=== PATIENT | male | born 1975 | race African-American/Black ===

== ENCOUNTER 2019-10-21 08:19 | Inpatient (IN) | payer MEDICARE, MEDICAID ==
[~2019-10-21] VITALS: Ht 261.6 cm; Wt 109.8 kg
[2019-10-21] MEDS ORDERED: MORPHINE SULFATE 4 MG/ML CPJ (NOT FOR IM USE) IV STA (09:13)
[2019-10-21] MEDS ORDERED: SODIUM CHLORIDE 0.9% 1,000 ML IV ONE (09:13)
[2019-10-21] MEDS ORDERED: ONDANSETRON HCL 4MG/2ML INJ IV STA (09:13)
[2019-10-21 11:15] LABS: CHLORIDE 97 mEq/L (98-107); EOSINOPHILS % 0.3 % (0.0-5.0); HEMATOCRIT. 52.5 % (42.0-52.0); HEMOGLOBIN. 17.7 g/dL (14.0-18.0); LYMPHOCYTES % 20.1 % (20.0-50.0); MEAN CORPUSCULAR HEMOGLOBIN 27.9 pg (28.0-32.0); MEAN CORPUSCULAR VOLUME 82.8 fL (80.0-94.0); MEAN PLATELET VOLUME 10.2 fl (7.4-10.4); MONOCYTES % 7.8 % (2.0-8.0); NEUTROPHILS % 70.8 % (40.0-76.0); PLATELET 209 x1000/uL (130-400); RED BLOOD CELL COUNT 6.34 mill/uL (4.7-6.1); RED CELL DISTRIBUTION WIDTH 14.6 % (11.6-14.6)
[2019-10-21 11:19] LABS: PARTIAL THROMBOPLASTIN TIME 26.6 sec (23.4-31.0); PROTHROMBIN TIME 10.8 sec (9.6-11.0)
[2019-10-21] MEDS ORDERED: NA PHOS,M-B/NA PHOS,DI-BA ENEMA 118ML PR PRN (12:00)
[2019-10-21] MEDS ORDERED: IPRATROPIUM/ALBUTEROL 0.5-3(2.5)MG/3ML NEB ORI PRN (12:00)
[2019-10-21] MEDS ORDERED: ZOLPIDEM TARTRATE 5MG TABLET PO PRN (12:00)
[2019-10-21] MEDS ORDERED: DEXTROSE 50% WATER 50ML SYRINGE IV PRN (12:00)
[2019-10-21] MEDS ORDERED: ENOXAPARIN 40MG/0.4ML SYR SUBCUT SCH (12:00)
[2019-10-21] MEDS ORDERED: HALOPERIDOL LACTATE 5MG/ML VIAL IM PRN (12:00)
[2019-10-21] MEDS ORDERED: LORAZEPAM 2MG/ML CPJ IV PRN (12:00)
[2019-10-21] MEDS ORDERED: NITROGLYCERIN 0.4MG TABLET SL SL PRN (12:00)
[2019-10-21] MEDS ORDERED: ACETAMINOPHEN 325MG TABLET PO PRN ×2 (12:00)
[2019-10-21] MEDS ORDERED: KETOROLAC 15MG/ML VIAL IV PRN (12:00)
[2019-10-21] MEDS ORDERED: ONDANSETRON HCL 4MG/2ML INJ IV PRN (12:00)
[2019-10-21] MEDS ORDERED: GUAIFENESIN 200MG/10ML SUGAR FREE UDC PO PRN (12:00)
[2019-10-21] MEDS: SODIUM CHLORIDE 0.9% 1,000 ML IV SCH ×2 (12:01→21:48)
[2019-10-21] MEDS: BLOOD SUGAR DIAGNOSTIC STRIP TEST SCH ×4 (12:31→20:34)
[2019-10-21] MEDS: INSULIN LISPRO 100 UNITS/ML SUBCUT SCH ×3 (12:37→20:34)
[2019-10-21] MEDS ORDERED: GLYBURIDE 5MG TABLET PO SCH (16:30)
[2019-10-21] MEDS ORDERED: LISI-604 PO (17:27)
[2019-10-21 17:30] VITALS: BP 139/75
[2019-10-21 17:32] VITALS: BP 139/75
[2019-10-21 20:00] VITALS: BP 132/85
[2019-10-21] MEDS: ENOXAPARIN 30MG/0.3ML SYR SUBCUT SCH (20:32)
[2019-10-21] MEDS: ASCORBIC ACID 500 MG TABLET PO SCH (20:33)
[2019-10-21] MEDS: METOPROLOL TARTRATE 25MG TABLET PO SCH (20:33)
[2019-10-21] MEDS: FAMOTIDINE 20MG TABLET PO SCH (20:33)
[2019-10-21] MEDS: ATORVASTATIN CALCIUM 20MG TABLET PO SCH (20:33)
[2019-10-21 21:29] LABS: CREATINE KINASE 176 IU/L (39-308)
[2019-10-22] VITALS (7 sets, daily range): BP systolic 108–134; BP diastolic 60–74
[2019-10-22] MEDS: INSULIN LISPRO 100 UNITS/ML SUBCUT SCH ×4 (06:44→22:23)
[2019-10-22] MEDS: BLOOD SUGAR DIAGNOSTIC STRIP TEST SCH ×4 (06:44→21:00)
[2019-10-22] MEDS: SODIUM CHLORIDE 0.9% 1,000 ML IV SCH ×2 (07:49→22:21)
[2019-10-22] MEDS: ZINC SULFATE 220 MG ( 50 ) CAPSULE PO SCH (09:37)
[2019-10-22] MEDS: METOPROLOL TARTRATE 25MG TABLET PO SCH ×2 (09:38→22:22)
[2019-10-22] MEDS: ASPIRIN 325MG EC TABLET PO SCH (09:38)
[2019-10-22] MEDS: FAMOTIDINE 20MG TABLET PO SCH ×2 (09:38→22:22)
[2019-10-22] MEDS: ASCORBIC ACID 500 MG TABLET PO SCH ×2 (09:38→22:23)
[2019-10-22] MEDS: ENOXAPARIN 30MG/0.3ML SYR SUBCUT SCH ×2 (09:39→22:24)
[2019-10-22] MEDS: INSULIN GLARGINE UD 100 UNITS/ML SYR SUBCUT SCH (10:00)
[2019-10-22] MEDS: ATORVASTATIN CALCIUM 20MG TABLET PO SCH (22:23)
[2019-10-23] VITALS: BP 112/54
[2019-10-23] MEDS: SODIUM CHLORIDE 0.9% 1,000 ML IV SCH ×2 (03:49→13:49)
[2019-10-23 04:00] VITALS: BP 134/71
[2019-10-23] MEDS: INSULIN LISPRO 100 UNITS/ML SUBCUT SCH ×4 (07:08→22:13)
[2019-10-23] MEDS: BLOOD SUGAR DIAGNOSTIC STRIP TEST SCH ×4 (07:08→21:59)
[2019-10-23 08:00] VITALS: BP 138/71
[2019-10-23 08:46] LABS: BASOPHILS % 0.9 % (0.0-2.0); EOSINOPHILS % 1.6 % (0.0-5.0); HEMATOCRIT. 43.2 % (42.0-52.0); HEMOGLOBIN. 14.3 g/dL (14.0-18.0); LYMPHOCYTES % 31.6 % (20.0-50.0); MEAN CORPUSCULAR HEMOGLOBIN 27.5 pg (28.0-32.0); MEAN CORPUSCULAR VOLUME 83.4 fL (80.0-94.0); MEAN PLATELET VOLUME 9.7 fl (7.4-10.4); MONOCYTES % 7.7 % (2.0-8.0); NEUTROPHILS % 58.2 % (40.0-76.0); PLATELET 153 x1000/uL (130-400); RED BLOOD CELL COUNT 5.18 mill/uL (4.7-6.1); RED CELL DISTRIBUTION WIDTH 14.3 % (11.6-14.6)
[2019-10-23 08:51] LABS: CHLORIDE 103 mEq/L (98-107)
[2019-10-23] MEDS: ENOXAPARIN 30MG/0.3ML SYR SUBCUT SCH ×2 (09:34→21:59)
[2019-10-23] MEDS: ASCORBIC ACID 500 MG TABLET PO SCH ×2 (09:34→21:58)
[2019-10-23] MEDS: ASPIRIN 325MG EC TABLET PO SCH (09:34)
[2019-10-23] MEDS: FAMOTIDINE 20MG TABLET PO SCH ×2 (09:34→21:58)
[2019-10-23] MEDS: ZINC SULFATE 220 MG ( 50 ) CAPSULE PO SCH (09:34)
[2019-10-23] MEDS: METOPROLOL TARTRATE 25MG TABLET PO SCH ×2 (09:36→21:59)
[2019-10-23] MEDS ORDERED: POTASSIUM CHLORIDE 20MEQ TABLET SR PO SCH (11:00)
[2019-10-23 12:00] VITALS: BP 119/67
[2019-10-23] MEDS: INSULIN GLARGINE UD 100 UNITS/ML SYR SUBCUT SCH (18:06)
[2019-10-23 20:19] VITALS: BP 112/59
[2019-10-23] MEDS: ATORVASTATIN CALCIUM 20MG TABLET PO SCH (21:58)
[2019-10-24] VITALS (7 sets, daily range): BP systolic 118–154; BP diastolic 63–79
[2019-10-24] MEDS: SODIUM CHLORIDE 0.9% 1,000 ML IV SCH ×2 (00:59→14:19)
[2019-10-24] MEDS: BLOOD SUGAR DIAGNOSTIC STRIP TEST SCH ×4 (06:23→20:33)
[2019-10-24] MEDS: INSULIN LISPRO 100 UNITS/ML SUBCUT SCH ×4 (08:23→20:42)
[2019-10-24] MEDS: METOPROLOL TARTRATE 25MG TABLET PO SCH (08:26)
[2019-10-24] MEDS: FAMOTIDINE 20MG TABLET PO SCH ×2 (08:29→20:33)
[2019-10-24] MEDS: ZINC SULFATE 220 MG ( 50 ) CAPSULE PO SCH (08:29)
[2019-10-24] MEDS: ENOXAPARIN 30MG/0.3ML SYR SUBCUT SCH ×2 (08:29→20:32)
[2019-10-24] MEDS: ASCORBIC ACID 500 MG TABLET PO SCH ×2 (08:29→20:33)
[2019-10-24] MEDS: ASPIRIN 325MG EC TABLET PO SCH (08:29)
[2019-10-24] MEDS: INSULIN GLARGINE UD 100 UNITS/ML SYR SUBCUT SCH (09:52)
[2019-10-24 17:03] LABS: CLARITY URINE CLEAR (CLEAR); COLOR URINE YELLOW (YELLOW); KETONES URINE 2+ (NEGATIVE); LEUKOCYTE ESTERASE URINE TRACE (NEGATIVE); NITRITE URINE NEGATIVE (NEGATIVE); OCCULT BLOOD URINE NEGATIVE (NEGATIVE); PROTEIN URINE NEGATIVE (NEGATIVE); SPECIFIC GRAVITY URINE 1.018 (1.005-1.030)
[2019-10-24] MEDS: ATORVASTATIN CALCIUM 20MG TABLET PO SCH (20:33)
== END 2019-10-24 21:17 | disposition home health service (06) | DRG 70 ==
LOC: ER 08:19 → MICUSO 11:42 → EDBEDREQTM 11:45 → EDBEDREQ 11:45 → SUPCPDRO 11:49 → 6WST 16:51
PROVIDERS: ADMIT Internal Medicine; ATTEND Internal Medicine
DX: G93.41 Metabolic encephalopathy (principal); L89.313 Pressure ulcer of right buttock, stage 3; G82.50 Quadriplegia, unspecified; I47.1 Supraventricular tachycardia; G90.8 Other disorders of autonomic nervous system; E11.65 Type 2 diabetes mellitus with hyperglycemia; E78.00 Pure hypercholesterolemia, unspecified; E78.5 Hyperlipidemia, unspecified; E87.8 Other disorders of electrolyte and fluid balance, not elsewhere classified; J45.909 Unspecified asthma, uncomplicated; I10 Essential (primary) hypertension; F79 Unspecified intellectual disabilities; F41.0 Panic disorder [episodic paroxysmal anxiety]; M24.451 Recurrent dislocation, right hip; N20.0 Calculus of kidney; W06.XXXA Fall from bed, initial encounter; Y93.89 Activity, other specified; Z82.49 Family history of ischemic heart disease and other diseases of the circulatory system; Y92.89 Other specified places as the place of occurrence of the external cause; Y99.8 Other external cause status; Z74.01 Bed confinement status; Z83.3 Family history of diabetes mellitus; Z99.3 Dependence on wheelchair; Z79.899 Other long term (current) drug therapy; Z79.82 Long term (current) use of aspirin
CPT/HCPCS: 36415; 70544; 70553; 71045; 74176; 80048; 80053; 80061; 81003; 82550; 82553; 82962; 83036; 83880; 84134; 84484; 85025; 92523; 92610; 93005; 93306; 93880; 93970; 96374; 97161; 97166; 99285; J1650; J1815; J2270; J2405; J7030

== ENCOUNTER 2022-03-31 14:41 | Emergency (ER) | payer MEDICARE, MEDICAID ==
[~2022-03-31] VITALS: Ht 162.6 cm; Wt 91.0 kg
[~2022-03-31 14:41] MED LIST: LISI20TA31 PO
[2022-03-31 14:48] VITALS: BP 135/81
[2022-03-31] MEDS ORDERED: KETOROLAC 15MG/ML VIAL IV ONE ×2 (16:45→19:30)
[2022-03-31 17:11] LABS: BASOPHILS % 0.4 % (0.0-2.0); HEMATOCRIT. 45.3 % (42.0-52.0); HEMOGLOBIN. 14.5 g/dL (14.0-18.0); LYMPHOCYTES % 10.5 % (20.0-50.0); MEAN CORPUSCULAR HEMOGLOBIN 26.7 pg (28.0-32.0); MEAN CORPUSCULAR VOLUME 83.2 fL (80.0-94.0); MEAN PLATELET VOLUME 7.9 fl (7.4-10.4); MONOCYTES % 7.1 % (2.0-8.0); PLATELET 235 x1000/uL (130-400); RED BLOOD CELL COUNT 5.45 mill/uL (4.7-6.1); RED CELL DISTRIBUTION WIDTH 14.7 % (11.6-14.6)
[2022-03-31 17:22] LABS: CHLORIDE 105 mEq/L (98-107)
[2022-03-31] MEDS ORDERED: SODIUM CHLORIDE 0.9% 1,000 ML IV ONE (18:00)
[2022-03-31 18:56] LABS: CLARITY URINE CLEAR (CLEAR); COLOR URINE YELLOW (YELLOW); KETONES URINE 1+ (NEGATIVE); LEUKOCYTE ESTERASE URINE NEGATIVE (NEGATIVE); NITRITE URINE NEGATIVE (NEGATIVE); OCCULT BLOOD URINE 2+ (NEGATIVE); PH URINE 6.5 (4.5-8.0); PROTEIN URINE 1+ (NEGATIVE); SPECIFIC GRAVITY URINE 1.022 (1.005-1.030)
[2022-03-31] MEDS ORDERED: ACET-2708 MT (20:58)
[2022-03-31] MEDS ORDERED: TAMS-11 MT (20:58)
== END 2022-04-01 05:21 | disposition home or self-care (01) ==
LOC: ER 14:41 → CANBEDREQ 04-01 19:59
DX: N20.0 Calculus of kidney (principal); R10.31 Right lower quadrant pain; R11.10 Vomiting, unspecified; J45.909 Unspecified asthma, uncomplicated; I10 Essential (primary) hypertension; Z79.899 Other long term (current) drug therapy
CPT/HCPCS: 36415; 74176; 80053; 81003; 83690; 85025; 96374; 99284; J1885; J7030

== ENCOUNTER 2022-04-05 11:16 | Emergency (ER) | payer MEDICARE, MEDICAID ==
[~2022-04-05] VITALS: Ht 162.6 cm; Wt 91.0 kg
[~2022-04-05 11:16] MED LIST changes: +ACET-2708 MT; +TAMS-11 MT
[2022-04-05] MEDS ORDERED: SODIUM CHLORIDE 0.9% 1,000 ML IV ONE (11:45)
[2022-04-05] MEDS ORDERED: KETOROLAC 15MG/ML VIAL IV ONE (11:45)
[2022-04-05 12:18] LABS: BASOPHILS % 0.4 % (0.0-2.0); EOSINOPHILS % 0.3 % (0.0-5.0); HEMATOCRIT. 44.1 % (42.0-52.0); HEMOGLOBIN. 14.3 g/dL (14.0-18.0); LYMPHOCYTES % 10.2 % (20.0-50.0); MEAN CORPUSCULAR VOLUME 83.1 fL (80.0-94.0); MEAN PLATELET VOLUME 8.1 fl (7.4-10.4); NEUTROPHILS % 82.1 % (40.0-76.0); PLATELET 212 x1000/uL (130-400); RED BLOOD CELL COUNT 5.31 mill/uL (4.7-6.1); RED CELL DISTRIBUTION WIDTH 14.4 % (11.6-14.6)
[2022-04-05 12:27] LABS: CHLORIDE 97 mEq/L (98-107)
[2022-04-05 12:34] LABS: ETHANOL BLOOD < 10 mg/dL
[2022-04-05] MEDS ORDERED: ONDA4TAB50 MT (15:34)
[2022-04-05] MEDS ORDERED: HYDR-4001 MT (15:34)
[2022-04-05] MEDS ORDERED: IBUP-2029 MT (15:34)
[2022-04-05] MEDS ORDERED: TAMS-11 MT (15:34)
[2022-04-05] MEDS ORDERED: CEPHALEXIN 250MG CAPSULE PO NR (15:45)
[2022-04-05] MEDS ORDERED: TAMSULOSIN HCL 0.4MG SR CAPSULE PO NR (15:45)
[2022-04-05 15:56] LABS: CLARITY URINE CLEAR (CLEAR); COLOR URINE YELLOW (YELLOW); KETONES URINE 2+ (NEGATIVE); LEUKOCYTE ESTERASE URINE NEGATIVE (NEGATIVE); NITRITE URINE NEGATIVE (NEGATIVE); OCCULT BLOOD URINE TRACE (NEGATIVE); PH URINE 6.5 (4.5-8.0); PROTEIN URINE NEGATIVE (NEGATIVE); SPECIFIC GRAVITY URINE 1.013 (1.005-1.030)
[2022-04-05 16:20] LABS: *AMPHETAMINES SCREEN URINE NEGATIVE (NEGATIVE); *BARBITURATES SCREEN URINE NEGATIVE (NEGATIVE); *BENZODIAZEPINES SCREEN URINE NEGATIVE (NEGATIVE); *COCAINE SCREEN URINE NEGATIVE (NEGATIVE); CANNABINOID URINE SCREEN NEGATIVE (NEGATIVE); METHADONE URINE SCREEN NEGATIVE (NEGATIVE); OPIATES URINE SCREEN NEGATIVE (NEGATIVE); PHENCYCLIDINE URINE SCREEN NEGATIVE (NEGATIVE)
[2022-04-06 12:29] VITALS: BP 105/58
== END 2022-04-06 13:00 | disposition home or self-care (01) ==
LOC: ER 11:16
DX: N20.1 Calculus of ureter (principal); N20.0 Calculus of kidney; J45.909 Unspecified asthma, uncomplicated; I10 Essential (primary) hypertension; G80.9 Cerebral palsy, unspecified; Z87.442 Personal history of urinary calculi
CPT/HCPCS: 36415; 74176; 80053; 80305; 80320; 81003; 83690; 85025; 96361; 96374; 99285; J1885; J7030; G0480